=== PATIENT | male | born 1955 | race Caucasian/White ===

== ENCOUNTER 2025-04-17 14:12 | Outpatient (CLI) | payer MEDICARE | END 2025-04-17 14:13 | disposition home or self-care (01) | LOC: CSHRAD 14:12 | PROVIDERS: ATTEND Nurse Practitioner | DX: I50.22 Chronic systolic (congestive) heart failure (principal); T82.120A Displacement of cardiac electrode, initial encounter | CPT/HCPCS: 71046 ==